=== PATIENT | male | born 2000 | race Caucasian/White ===

== ENCOUNTER 2023-08-10 16:44 | Emergency (ER) | payer OTHER, SELFPAY ==
[2023-08-10 16:47] VITALS: BP 165/97; PULSE 81; RESP 18; TEMP 36.6; O2SAT 97; BMI 25.8
--- NOTE | 2023-08-10 16:59 | XR_ITS ---
The [address] [address] Patient Name: JAKOB HERNANDEZ MRN: [id number] date: 2000 Sex: M Assigned Patient Location: ER Current Patient Location: ER Accession/Order Number: [id number] Exam Date: 08/10/2023 17:10 Report Date: 08/10/2023 17:48 At the request of: MARIUSZ PETER Procedure: XR acute abdomen series EXAM: ACUTE ABDOMINAL SERIES HISTORY: Diarrhea which is increased today. TECHNIQUE: A single view of the chest and 3 views of the abdomen and pelvis are submitted for review. COMPARISON: None. FINDINGS: CHEST X-RAY: The lungs are adequately expanded. There is no acute infiltrate. There is no evidence for effusion. The cardiomediastinal silhouette measures within normal limits. Pulmonary vascularity is unremarkable. Osseous structures are within normal limits for age. ABDOMEN: Non obstructive bowel gas pattern. Limited evaluation for free air due to supine technique. There are no abnormal calcifications. However, evaluation of the renal shadows is limited due to overlying bowel gas. No portal venous air. Osseous structures appear within normal limits for age. XR/XR acute abdomen series IMPRESSION: CHEST X-RAY: No plain film evidence for acute cardiopulmonary disease. ABDOMEN: 1. Nonobstructive bowel gas pattern. 2. Minimal retention of stool. Electronically authenticated by: DOROTHY HANNA Date: 08/10/2023 17:48
--- NOTE | 2023-08-10 17:00 | ED_ITS ---
HPI - General Adult General Chief complaint: Nausea/Vomiting/Diarrhea Stated complaint: FLU LIKE SYMPTOMS Time Seen by Provider: 08/10/23 16:48 Source: patient Mode of arrival: walk-in Limitations: no limitations History of Present Illness HPI narrative: patient is a 22-year-old male who presents to the emergency department with his mother for the evaluation of nausea and diarrhea over the last six days. Patient states he has had some left-sided abdominal cramping associated with significant diarrhea and nausea. No fevers or vomiting. He's had no other upper respiratory symptoms. He currently lives in [place] and is here visiting family. He had outpatient routine labs done with his PCP last week. No previous abdominal surgeries. No medications taken prior to arrival. No sick contacts. Related Data Previous Rx's Medication Instructions Recorded hyoscyamine sulfate 0.125 mg 0.125 mg PO Q6H PRN abdominal pain 08/10/23 tablet (Levsin) #12 tabs ondansetron 4 mg disintegrating 4 mg PO Q6H PRN nausea and 08/10/23 tablet vomiting #12 tabs Allergies Allergy/AdvReac Type Severity Reaction Status Date / Time No Known Drug Allergies Allergy Verified 08/10/23 16:53 Review of Systems ROS Constitutional Denies: fever or chills Ears, nose, mouth, and throat Denies: throat pain Cardiovascular Denies: chest pain Respiratory Denies: shortness of breath or cough Gastrointestinal Reports: abdominal pain, nausea and diarrhea; Denies: vomiting Genitourinary Denies: painful urination Musculoskeletal Denies: back pain Integumentary/Breast Denies: rash Neurological Denies: headache Exam Narrative Exam Narrative: Gen.: Awake, alert, in no distress Head: Normocephalic, atraumatic ENT: Moist mucous membranes Respiratory: No respiratory distress, lungs clear bilaterally Cardio: Regular rate and rhythm Gastrointestinal: Abdomen is soft, nondistended and nontender to palpation Extremities: Moves extremities equally Psych: Normal mood and affect Neuro: No focal neuro deficit Skin: Warm, dry, intact Constitutional Vital Signs, click to edit/add: Last Vital Signs Temp 97.9 F 08/10/23 16:47 Pulse 81 08/10/23 16:47 Resp 18 08/10/23 16:47 BP 165/97 H 08/10/23 16:47 Pulse Ox 97 08/10/23 16:47 O2 Del Method Room Air 08/10/23 16:47 Course Vital Signs Vital signs: Vital Signs Temperature 97.9 F 08/10/23 16:47 Pulse Rate 81 08/10/23 16:47 Respiratory Rate 18 08/10/23 16:47 Blood Pressure 165/97 H 08/10/23 16:47 Pulse Oximetry 97 08/10/23 16:47 Oxygen Delivery Method Room Air 08/10/23 16:47 Temperature 97.9 F 08/10/23 16:47 Pulse Rate 81 08/10/23 16:47 Respiratory Rate 18 08/10/23 16:47 Blood Pressure 165/97 H 08/10/23 16:47 Pulse Oximetry 97 08/10/23 16:47 Oxygen Delivery Method Room Air 08/10/23 16:47 Medical Decision Making MDM Narrative Medical decision making narrative: patient refused IV, IV fluids and medications. He was not able to provide a suitable specimen for gastrointestinal panel from the emergency department. Abdominal x-rays and labs are unremarkable with no evidence of electrolyte abnormality or dehydration. Patient will be given an outpatient form for gastrointestinal panel when he can drop off a suitable stool specimen. He is discharged home with Zofran and Levsin as needed. Return to the Emergency Room if symptoms change or worsen. Medical Records Medical records reviewed: Yes I reviewed the patient's medical records Lab Data Lab results reviewed: Yes I reviewed the patient's lab results Labs: Lab Results 08/10/23 Range/Units 17:18 WBC 6.4 (4.0-11.0) 10^3/uL RBC 4.63 L (4.70-6.10) 10^6/uL Hgb 14.4 (14.0-18.0) g/dL Hct 43.0 (42.0-54.0) % MCV 92.9 (80.0-94.0) fL MCH 31.1 (25.9-34.0) pg MCHC 33.5 (29.9-35.2) g/dL RDW 11.8 (11.0-15.0) % Plt Count 319 (150-450) 10^3/uL MPV 10.4 (9.5-13.5) fL Neut % (Auto) 49.9 (43.0-75.0) % Lymph % (Auto) 33.0 (20.5-60.0) % [place] % (Auto) 13.8 H (1.7-12.0) % Eos % (Auto) 1.9 (0.9-7.0) % Baso % (Auto) 1.1 (0.2-2.0) % Neut # (Auto) 3.2 (1.4-6.5) 10^3/uL Lymph # (Auto) 2.1 (1.2-3.8) 10^3/uL [place] # (Auto) 0.9 H (0.3-0.8) 10^3/uL Eos # (Auto) 0.1 (0.0-0.7) 10^3/uL Baso # (Auto) 0.1 (0.0-0.1) 10^3/uL Abs Immat Gran (auto) 0.02 (0.00-0.03) 10^3/uL Imm/Tot Granulo (auto) 0.3 (0.0-0.5) % Sodium 138 (136-145) mmol/L Potassium 3.7 (3.5-5.1) mmol/L Chloride 103 (98-107) mmol/L Carbon Dioxide 26.4 (21.0-32.0) mmol/L Anion Gap 12.3 BUN 16.0 (7.0-18.0) mg/dL Creatinine 1.01 (0.70-1.30) mg/dL Est GFR ( Amer) >60 (>=60) Est GFR (Non-Af Amer) >60 (>=60) BUN/Creatinine Ratio 15.8 Glucose 92 (74-106) mg/dL Lactate 0.8 (0.4-2.0) mmol/L Calcium 8.9 (8.5-10.1) mg/dL Total Bilirubin 0.5 (0.2-1.0) mg/dL AST 15 (15-37) U/L ALT 20 (16-63) U/L Alkaline Phosphatase 95 (46-116) U/L Total Protein 8.0 (6.4-8.2) g/dL Albumin 4.7 (3.4-5.0) g/dL Globulin 3.3 g/dL Albumin/Globulin Ratio 1.4 Lipase 27.0 (16.0-77.0) U/L Imaging Data Abdominal x-ray: Attestation: I have reviewed the pertinent imaging results. Radiologist's impression: Procedure: XR acute abdomen series EXAM: ACUTE ABDOMINAL SERIES HISTORY: Diarrhea which is increased today. TECHNIQUE: A single view of the chest and 3 views of the abdomen and pelvis are submitted for review. COMPARISON: None. FINDINGS: CHEST X-RAY: The lungs are adequately expanded. There is no acute infiltrate. There is no evidence for effusion. The cardiomediastinal silhouette measures within normal limits. Pulmonary vascularity is unremarkable. Osseous structures are within normal limits for age. ABDOMEN: Non obstructive bowel gas pattern. Limited evaluation for free air due to supine technique. There are no abnormal calcifications. However, evaluation of the renal shadows is limited due to overlying bowel gas. No portal venous air. Osseous structures appear within normal limits for age. IMPRESSION: CHEST X-RAY: No plain film evidence for acute cardiopulmonary disease. ABDOMEN: 1. Nonobstructive bowel gas pattern. 2. Minimal retention of stool. Electronically authenticated by: DOROTHY HANNA Date: 08/10/2023 17:48 Discharge Plan Discharge Chief Complaint: Nausea/Vomiting/Diarrhea Clinical Impression: Diarrhea Patient Disposition: Home, Self-Care Time of Disposition Decision: 18:04 Condition: Good Prescriptions / Home Meds: New hyoscyamine sulfate [Levsin] 0.125 mg tablet 0.125 mg PO Q6H PRN (Reason: abdominal pain) Qty: 12 0RF ondansetron 4 mg tablet,disintegrating 4 mg PO Q6H PRN (Reason: nausea and vomiting) Qty: 12 0RF Instructions: Acute Diarrhea (ED) Stand Alone Forms: Portal Instructions Referrals: Physician,Non-Staff, MD [Primary Care Provider] - 1 week
[2023-08-10 17:26] LABS: Basophils Absolute Auto 0.1 10^3/uL (0.0-0.1); Basophils Percent Auto 1.1 % (0.2-2.0); Eosinophils Absolute Auto 0.1 10^3/uL (0.0-0.7); Eosinophils Percent Auto 1.9 % (0.9-7.0); Hemoglobin 14.4 g/dL (14.0-18.0); Immature Granulocytes Abs Auto 0.02 10^3/uL (0.00-0.03); Immature Granulocytes Pct Auto 0.3 % (0.0-0.5); Lymphocytes Absolute Auto 2.1 10^3/uL (1.2-3.8); Mean Corpuscular HGB Conc 33.5 g/dL (29.9-35.2); Mean Corpuscular Hemoglobin 31.1 pg (25.9-34.0); Mean Corpuscular Volume 92.9 fL (80.0-94.0); Mean Platelet Volume 10.4 fL (9.5-13.5); Monocytes Absolute Auto 0.9 10^3/uL (0.3-0.8); Monocytes Percent Auto 13.8 % (1.7-12.0); Neutrophils Absolute Auto 3.2 10^3/uL (1.4-6.5); Neutrophils Percent Auto 49.9 % (43.0-75.0); Platelet Count 319 10^3/uL (150-450); Red Blood Count 4.63 10^6/uL (4.70-6.10); Red Cell Distribution Width 11.8 % (11.0-15.0); White Blood Count 6.4 10^3/uL (4.0-11.0)
[2023-08-10 17:43] LABS: Alanine Aminotransferase 20 U/L (16-63); Albumin Globulin Ratio 1.4; Albumin Level 4.7 g/dL (3.4-5.0); Alkaline Phosphatase 95 U/L (46-116); Anion Gap 12.3; Aspartate Amino Transferase 15 U/L (15-37); BUN Creatinine Ratio 15.8; Bilirubin Total 0.5 mg/dL (0.2-1.0); Calcium 8.9 mg/dL (8.5-10.1); Carbon Dioxide 26.4 mmol/L (21.0-32.0); Chloride 103 mmol/L (98-107); Estimated GFR (African America >60 (>=60); Estimated GFR (Non-African Ame >60 (>=60); Globulin 3.3 g/dL; Glucose 92 mg/dL (74-106); Potassium 3.7 mmol/L (3.5-5.1); Sodium 138 mmol/L (136-145)
[2023-08-10 17:46] LABS: Lactate/Lactic Acid 0.8 mmol/L (0.4-2.0)
== END 2023-08-10 18:17 | disposition home or self-care (01) ==
PROVIDERS: Physician Assistant; Emergency Provider Emergency Medicine
DX: R19.7 Diarrhea, unspecified (principal); R10.9 Unspecified abdominal pain; R11.0 Nausea
CPT/HCPCS: 36415; 74022; 80053; 83605; 83690; 85025; 87507; 99285

== ENCOUNTER 2023-08-11 14:18 | Outpatient (REF) | payer OTHER, SELFPAY ==
[2023-08-11 10:41] LABS: C. Difficile PCR NEGATIVE (NEGATIVE)
== END 2023-08-11 14:19 | disposition home or self-care (01) ==
LOC: LAB 14:18
PROVIDERS: Visit Provider Emergency Medicine
DX: R19.7 Diarrhea, unspecified (principal)
CPT/HCPCS: 87045; 87046; 87177; 87209; 87427; 87493